=== PATIENT | female | born 1970 | race African-American/Black ===

== ENCOUNTER 2019-12-06 13:02 | Outpatient (CLI) | payer BC, SELFPAY ==
--- NOTE | 2019-12-06 13:07 | ECG_ITS ---
Measurements Intervals [place] Rate: 76 P: 4 ND: 144 QRS: 14 QRSD: 88 T: 13 QT: 364 QTc: 411 Interpretive Statements SINUS RHYTHM NORMAL ECG Electronically Signed On 12-06-2019 13:27:59 CDT by Esteban Bond D.O.
[2019-12-06 13:46] LABS: Basophils Percent Auto 0.6 % (0.2-1.2); Eosinophils Absolute Auto 0.1 K/mm3 (0-0.3); Eosinophils Percent Auto 1.7 % (0-4.4); Hemoglobin 11.5 g/dL (12.0-15.0); Immature Granulocyte Absolute 0.01 K/mm3 (0.00-0.031); Immature Granulocyte Percent A 0.2 % (0-0.5); Lymphocytes Absolute Auto 1.63 K/mm3 (0.9-3.2); Lymphocytes Percent Auto 34.2 % (18.3-44.2); Mean Corpuscular HGB Conc 33.8 g/dl (32-36); Mean Corpuscular Hemoglobin 30.3 pg (26-34); Mean Corpuscular Volume 89.7 fl (80-100); Mean Platelet Volume 10.9 fl (7.4-10.4); Monocytes Absolute Auto 0.4 K/mm3 (0.1-0.6); Monocytes Percent Auto 7.8 % (2.6-8.5); Neutrophils Absolute Auto 2.7 K/mm3 (1.3-6.7); Neutrophils Percent Auto 55.5 % (45.5-73.1); Platelet Count Result 231 k/mm3 (150-375); Red Blood Count 3.79 M/mm3 (4.2-5.4); Red Cell Distribution Width 13.6 % (11.5-14.5); White Blood Count 4.8 K/mm3 (4.5-10.0)
[2019-12-06 13:58] LABS: Anion Gap 11.6 mmol/L (7-16); Blood Urea Nitrogen 11 mg/dL (7-17); Calcium 8.9 mg/dL (8.4-10.2); Carbon Dioxide 26 mmol/L (22-30); Chloride 104 mmol/L (98-107); Estimated Glomerular Filt Rate > 60; Glucose 99 mg/dL (65-105); Potassium 3.6 mmol/L (3.4-5.0); Sodium 138 mmol/L (137-145)
== END 2019-12-06 13:03 | disposition home or self-care (01) ==
PROVIDERS: Anesthesiology; PCP Internal Medicine; Visit Provider Obstetrics & Gynecology
DX: Z01.818 Encounter for other preprocedural examination (principal); I10 Essential (primary) hypertension; R10.2 Pelvic and perineal pain; Z79.899 Other long term (current) drug therapy
CPT/HCPCS: 36415; 80048; 85025; 86850; 86900; 86901; 93005

== ENCOUNTER 2019-12-14 00:53 | Outpatient (CLI) | payer BC, SELFPAY ==
[2019-12-14 18:42] LABS: SARS-CoV-2 RNA PCR Negative
== END 2019-12-14 00:54 | disposition home or self-care (01) ==
LOC: ANHCOVIDDT 00:54
PROVIDERS: PCP Internal Medicine; Visit Provider Obstetrics & Gynecology
DX: Z20.828 Contact with and (suspected) exposure to other viral communicable diseases (principal)
CPT/HCPCS: 87635; C9803; U0003

== ENCOUNTER 2019-12-16 01:20 | Day surgery (SDC) | payer BC, SELFPAY ==
[2019-12-01 13:04] VITALS: BMI 46.6
--- NOTE | 2019-12-14 07:44 | PM.IMHP ---
H&P: HPI History of Present Illness Date/Time: 12/14/19 07:44 Chief complaint: enlarge uterus, fibroids, pelvic pain Narrative: Sanjay Larios is a 49 year old female 3 para 3 who is admitted for robotic total vaginal hysterectomy and bilateral salpingectomies. She has a markedly enlarged uterus that appears to be secondary to uterine fibroids. Ultrasound measured the uterus [id number]. Risks and benefits were reviewed including but not exclusive of , aspiration pneumonia, bleeding, transfusion, perforation injury to bowel, bladder, ureters, or other internal organs with need for open laparotomy. She voiced good understanding. She received the [employer] handout entitled hysterectomy as well as the [facility] [place] handout. She had all questions answered. She asked to proceed Review of Systems Review of Systems: All systems reviewed & are unremarkable except as noted in HPI and below PMFSH Social History Social History Smoking status: Never smoker Spiritual care concerns: No Meds Home Medications and Allergies Home Medications Medication Instructions Recorded Confirmed Type acetaminophen-codeine 1 tablet PO DIRECTED PRN 12/01/19 12/01/19 History allopurinol 100 mg PO DAILY 12/01/19 12/01/19 History aspirin 81 mg PO DAILY 12/01/19 12/01/19 History carvedilol 12.5 mg PO QPM 12/01/19 12/01/19 History carvedilol 25 mg PO DAILY 12/01/19 12/01/19 History ergocalciferol (vitamin D2) 50,000 unit PO Q14D 12/01/19 12/01/19 History pantoprazole 40 mg PO DAILY 12/01/19 12/01/19 History potassium chloride 20 meq PO DAILY 12/01/19 12/01/19 History spironolactone 50 mg PO DAILY 12/01/19 12/01/19 History telmisartan-hydrochlorothiazid 1 tablet PO DAILY 12/01/19 12/01/19 History Allergies Allergy/AdvReac Type Severity Reaction Status Date / Time No Known Allergies Allergy Verified 12/01/19 13:05 Exam Const: General: no acute distress Eyes: General: appearance normal, both eyes and all related structures Neck: Neck: supple and no JVD Thyroid: thyroid normal Resp: Effort & Inspection: normal respiratory effort Auscultation: clear to auscultation bilaterally Cardio: Rate: regular rate Rhythm: regular rhythm GI: Inspection: non-distended GI Palp: Yes Soft to palpation, No Tenderness to palpation present (GI) and No Guarding due to palpation present (GI) Auscultation: normal bowel sounds : General: Yes bladder normal to inspection External Female Exam: normal external appearance Speculum Exam - Vagina: normal appearance of the vagina Speculum Exam - Cervix: normal appearance of the cervix Bimanual exam- vagina & uterus: enlarged Bimanual Exam- Adnexa, other: no masses Skin: General skin exam: no rashes or lesions noted Extrem: General: normal to inspection and no edema Psych: Mental Status: mental status grossly normal Affect: normal affect Assessment and Plan Additional Plan impression: Enlarged uterus and pelvic pain /uterine fibroids Plan: Robotic total vaginal hysterectomy and bilateral salpingectomies
[2019-12-16] VITALS (15 sets, daily range): BP systolic 103–131; BP diastolic 62–86; PULSE 57–101; RESP 12–20; TEMP 36.2–36.9; O2SAT 91–100
--- NOTE | 2019-12-16 06:51 | WPDHPUPDATE1 ---
History and Physical Update Update Date/Time: 12/16/19 06:51 History and Physical has been reviewed, including an updated exam of the patient. There are NO changes in the patient's condition. Risks, benefits, and alternatives have been discussed and questions answered. Patient agrees to proceed with procedure.
[2019-12-16] MEDS: LACTATED RINGERS 1,000 ML 30 ML IV CONT ×2 (10:05→12:57)
--- NOTE | 2019-12-16 10:08 | P.PNAN_ITS ---
Anes - Initial Pre Proc Eval Procedure: Operation Date: 12/16/19 11:30 Proposed Procedures p Robotic Assisted Total Vaginal Hysterectomy, Bilateral Salpingectomy - Abhijeet Cobb MD Date/Time: 12/16/19 10:08 Surgeon: Abhijeet Cobb MD Pre Op Diagnosis: enlarge uterus, fibroids, pelvic pain Patient Data Age: 49 Gender: F Height: 5 ft 6 in Weight: 131.09 kg Allergies Allergy/AdvReac Type Severity Reaction Status Date / Time No Known Allergies Allergy Verified 12/01/19 13:05 Home Medications Medication Instructions Recorded Confirmed Type acetaminophen-codeine 1 tablet PO DIRECTED PRN 12/01/19 12/01/19 History allopurinol 100 mg PO DAILY 12/01/19 12/01/19 History aspirin 81 mg PO DAILY 12/01/19 12/01/19 History carvedilol 12.5 mg PO QPM 12/01/19 12/01/19 History carvedilol 25 mg PO DAILY 12/01/19 12/01/19 History ergocalciferol (vitamin D2) 50,000 unit PO Q14D 12/01/19 12/01/19 History pantoprazole 40 mg PO DAILY 12/01/19 12/01/19 History potassium chloride 20 meq PO DAILY 12/01/19 12/01/19 History spironolactone 50 mg PO DAILY 12/01/19 12/01/19 History telmisartan-hydrochlorothiazid 1 tablet PO DAILY 12/01/19 12/01/19 History hydrocodone-acetaminophen [[place]] 1 tablet PO Q4H PRN #30 tablet 12/16/19 Rx Patient hx anesthesia problems: none Family hx anesthesia problems: none [facility] Past Medical History Medical History GERD (gastroesophageal reflux disease) Hypertension Social History Social History Smoking status: Never smoker Spiritual care concerns: No Anes - Eval Final PreProcedure Day of Procedure 12/16/19 10:08 Patient weight: morbidly obese Heart: regular rate and rhythm Lungs: clear to auscultation Airway: Mallampati scale class II Neurological: alert and oriented Last oral intake: >/= 8 hours ASA classification: III Emergent: no Anesthetic plan: proceed Anesthesia type and monitoring: general ETT and standard monitoring Informed Consent: The patient's anesthetic plan and its attendant risks and benefits were discussed with the patient/family/POA. Questions were solicited and answers provided to the satisfaction of the patient/family/POA.
[2019-12-16] MEDS: KETOROLAC 15 MG/ML VIAL (*BKC) IV PUSH (10:14)
[2019-12-16] MEDS: ACETAMINOPHEN 500 MG TABLET 1000 MG PO (10:14)
[2019-12-16] MEDS: ceFAZolin 3 GM/D5W 100 ML 100 ML IVPB (11:17)
--- NOTE | 2019-12-16 12:34 | P.OP_ITS ---
Procedure Note - Detailed Date of procedure: 12/16/19 Pre-op diagnosis: enlarge uterus, fibroids, pelvic pain Surgeon: Abhijeet Cobb MD Postop diagnosis: Enlarged uterus / fibroids / pelvic pain Procedure: Robotic total vaginal hysterectomy and bilateral salpingectomy Q BL: 50cc Anesthesia: General endotracheal Complications: None Findings: Markedly enlarged uterus. A few adhesions anteriorly from the omentum to the anterior abdominal wall. Normal-appearing ovaries bilaterally. Tubes status post tubal ligation bilaterally Description of procedure: The patient was prepped draped in the normal sterile fashion and placed in dorsal lithotomy position. Under excellent general and endotracheal anesthesia weighted speculum was placed in the posterior fornix of vagina. Anterior lip of the cervix grasped with single-tooth tenaculum and the uterus sounded to 10cm. Serial dilatation with fragmented dilators performed followed passes the 10. SONDRA the 3. And half cold cup. The remainder the instruments were removed. A 16 [place] catheter was placed in the bladder to drain clear urine. Gloves were changed. A supraumbilical incision made in the Veress needle passed in the abdomen. The abdomen was filled with CO2 gas [id number]. The 8mm trocar was advanced in the abdomen. The downside was visualized no injury seen. The patient was placed in Trendelenburg and right and left lateral quadrant incisions made. 8mm trocars were advanced under direct visualization assuring no injury. A right upper quadrant incision made in the 10mm trocar advanced under direct visualization for the assistant teaching professor port. Robot was docked. Attention was turned to the assessment counselor. The left round ligament was grasped, burned cut and a bladder flap was formed by sharply dissecting the bladder caudally away from the cervix and uterus to the opposite round ligament was clamped, burned, cut. Next the left fallopian tube was teased away and sharply dissected away from the ovary in like fashion the right fallopian tube was returned treated in the same fashion. Conserving the left ovary the the left utero-ovarian ligament was clamped, burned, cut. This was brought to the level of previously cut round ligament. Conserving the right ovary the utero-ovarian ligament was clamped, burned, cut and brought to the level of the previously cut round ligament. Next the cardinal and broad ligaments on left were serially skeletonized clamped, burned, cut and brought down the lateral edge of the cervix and uterus until the uterine vessels could be seen on the left. These were large and tortuous and individually clamped,, cut. Next the cardinal and broad ligaments on the right were serially skeletonized. They were clamped, burned, cut. Next the uterine vessels were individually skeletonized on the right clamped, burned, cut. Excellent blanching the uterus was seen. A colpotomy incision was made and the uterus cervix and fallopian tubes were removed through the vagina. Blood loss was estimated at50cc at this point. The vagina was then closed with continuous running 0V lock from lateral edge to lateral edge and back to the midline. Irrigation undertaken until clear and hemostasis was assured. The robot was undocked. Laps were removed and accounted for. The trocars were removed after gas removed from the abdomen and the incisions closed with 4 O Monocryl and glue. The patient was awakened. She went to recovery in satisfactory condition. All sponge, needle, instrument counts were correct. There were no immediate complications noted
[2019-12-16] MEDS: DEXTROSE 5%/LACTATED RINGERS 1,000 ML 125 ML IV CONT ×2 (14:45→20:47)
[2019-12-16] MEDS: MORPHINE SULFATE 4 MG/ML INJ IV PUSH (14:46)
--- NOTE | 2019-12-16 14:57 | PC.NURSE ---
This patient, Sanjay Larios, was admitted to OB 2nd Floor Room 289-00. Patient/family oriented to hospital policies and general routines including ID bracelet, bed and alarms, visiting hours, pain management, procedures, bathroom and other care routines, personal items, smoking policy, room service/diet, and visiting hours. Valuables list has been completed. Information on how to activate the Rapid Response Team has been discussed. Patient/Family are encouraged to report perceived risks to care and to ask questions if they do not understand what they are told or what they should do.
[2019-12-17 00:30] VITALS: BP 100/61; PULSE 96; RESP 18; TEMP 36.8; O2SAT 91; O2SAT 99
[2019-12-17 05:30] VITALS: BP 98/54; PULSE 96; RESP 16; TEMP 36.9; O2SAT 95
[2019-12-17 06:19] LABS: Basophils Percent Auto 0.1 % (0.2-1.2); Hematocrit 31.9 % (37.0-47.0); Hemoglobin 10.7 g/dL (12.0-15.0); Immature Granulocyte Absolute 0.06 K/mm3 (0.00-0.031); Immature Granulocyte Percent A 0.5 % (0-0.5); Lymphocytes Absolute Auto 1.13 K/mm3 (0.9-3.2); Lymphocytes Percent Auto 9.6 % (18.3-44.2); Mean Corpuscular HGB Conc 33.5 g/dl (32-36); Mean Corpuscular Hemoglobin 29.8 pg (26-34); Mean Corpuscular Volume 88.9 fl (80-100); Monocytes Absolute Auto 0.7 K/mm3 (0.1-0.6); Monocytes Percent Auto 6.2 % (2.6-8.5); Neutrophils Absolute Auto 9.8 K/mm3 (1.3-6.7); Neutrophils Percent Auto 83.6 % (45.5-73.1); Platelet Count Result 269 k/mm3 (150-375); Red Blood Count 3.59 M/mm3 (4.2-5.4); White Blood Count 11.8 K/mm3 (4.5-10.0)
[2019-12-17 06:30] VITALS: BP 108/59; PULSE 90; RESP 18; TEMP 36.9
--- NOTE | 2019-12-17 08:01 | PM.DS ---
DS: Admitting Diagnosis Admitting Diagnosis Admitting Diagnosis: enlarge uterus, fibroids, pelvic pain DS: Summary Hospital Course Hospital Course: Sanjay Larios was admitted after robotic assisted total laparoscopic hysterectomy and bilateral salpingectomy for an enlarged uterus. The above procedure was performed with no complications. She is doing well post op. She states her pain is well controlled with PO medications. She reports minimal bleeding. She is ambulating up to the chair. Her canseco catheter was removed. She is tolerating PO without N/V. She reports passing flatus. Status at Discharge Overall status at discharge: patient is progressing back to baseline Time Spent with Patient Time attestation: Total time spent providing and/or coordinating discharge services: Time spent: Less than 30 minutes Exam Const: General: comfortable and no acute distress Limitations: no limitations Resp: Effort & Inspection: normal respiratory effort Auscultation: clear to auscultation bilaterally Cardio: Rate: regular rate Rhythm: regular rhythm GI: Inspection: non-distended GI Palp: Yes Soft to palpation, Yes Tenderness to palpation present (GI) (milder tenderness to deep palpation) and No Guarding due to palpation present (GI) Auscultation: normal bowel sounds Other: incisions C/D/I covered with dermabond Urinary Catheter: Urinary Catheter: urine clear Skin: General skin exam: normal color Extrem: General: normal to inspection Psych: Mental Status: mental status grossly normal Affect: normal affect DS: Data Data Completed and Pending Pending studies at discharge: Pending at discharge 12/16/19 12:10 Surgical [PTH] Routine Labs on day of discharge: Labs from last 24 hours 12/17/19 05:36 WBC 11.8 H RBC 3.59 L Hgb 10.7 L Hct 31.9 L MCV 88.9 MCH 29.8 MCHC 33.5 RDW 13.0 Plt Count 269 MPV 11.0 H Immature Gran % (Auto) 0.5 Neut % (Auto) 83.6 H Lymph % (Auto) 9.6 L [place] % (Auto) 6.2 Eos % (Auto) 0.0 Baso % (Auto) 0.1 L Lymph # (Auto) 1.13 [place] # (Auto) 0.7 H Eos # (Auto) 0.0 Baso # (Auto) 0.0 Abs Immat Gran (auto) 0.06 H Absolute Neuts (auto) 9.8 H Absolute Nucleated RBC 0.0 Nucleated RBC % 0.0 Discharge Plan Discharge Patient Disposition: Home, Self-Care Patient Instructions: Laparoscopic Hysterectomy (DC) Stand Alone Forms: General Discharge Instructions Follow-up/Referrals: Abhijeet Cobb MD [Physician] - Discharge Medications: New hydrocodone-acetaminophen [[place]] 5-325 mg tablet 1 tablet PO Q4H PRN (Reason: pain) Qty: 30 RF: 0 No Action carvedilol 12.5 mg tablet 25 mg PO DAILY RF: 0 carvedilol 12.5 mg tablet 12.5 mg PO QPM RF: 0 allopurinol 100 mg tablet 100 mg PO DAILY RF: 0 aspirin 81 mg Tablet,Delayed Release (Dr/Ec) 81 mg PO DAILY RF: 0 potassium chloride 20 mEq tablet,ER particles/crystals 20 meq PO DAILY RF: 0 pantoprazole 40 mg tablet,delayed release (DR/EC) 40 mg PO DAILY RF: 0 ergocalciferol (vitamin D2) 1,250 mcg (50,000 unit) capsule 50,000 unit PO Q14D RF: 0 spironolactone 50 mg tablet 50 mg PO DAILY RF: 0 telmisartan-hydrochlorothiazid 80-25 mg Tablet 1 tablet PO DAILY RF: 0 acetaminophen-codeine 300-30 mg tablet 1 tablet PO DIRECTED PRN (Reason: Pain) RF: 0 Primary Care Provider: Brandy,Wilder Nava Attending physician on admission: Abhijeet Cobb
--- NOTE | 2019-12-17 08:31 | WPDANESPN ---
Anes - Prog Note Post-Op Date/Time: 12/17/19 08:31 Cardiovascular status: normal Respiratory status: normal Airway patency: baseline Mental status: baseline Post-Op hydration status: normal Vital Signs: Last Vital Signs Temp 36.9 C 12/17/19 06:30 Pulse 90 12/17/19 06:30 Resp 18 12/17/19 06:30 BP 108/59 L 12/17/19 06:30 Pulse Ox 95 12/17/19 05:30 I/O: Intake & Output 12/16/19 12/17/19 12/17/19 23:59 07:59 15:59 Intake Total 1490 625 Output Total 650 250 Balance 840 375 Laboratory Tests 12/17/19 05:36 12/17/19 05:36 WBC 11.8 H RBC 3.59 L Hgb 10.7 L Hct 31.9 L MCV 88.9 MCH 29.8 MCHC 33.5 RDW 13.0 Plt Count 269 MPV 11.0 H Immature Gran % (Auto) 0.5 Neut % (Auto) 83.6 H Lymph % (Auto) 9.6 L [place] % (Auto) 6.2 Eos % (Auto) 0.0 Baso % (Auto) 0.1 L Lymph # (Auto) 1.13 [place] # (Auto) 0.7 H Eos # (Auto) 0.0 Baso # (Auto) 0.0 Abs Immat Gran (auto) 0.06 H Absolute Neuts (auto) 9.8 H Absolute Nucleated RBC 0.0 Nucleated RBC % 0.0 Post-procedural complaints: none Patient Feedback: Patient satisfied with anesthetic care.
[2019-12-17] MEDS: DOCUSATE SODIUM 100 MG CAPSULE PO (10:45)
[2019-12-17] MEDS: IBUPROFEN 600 MG TABLET PO (10:45)
[2019-12-17] MEDS: ENOXAPARIN 40 MG/0.4 ML SYRINGE SUB-Q (10:46)
== END 2019-12-17 15:17 | disposition home or self-care (01) ==
LOC: ANHSURGERY 09:30 → ANHOB2 14:16
PROVIDERS: PCP Internal Medicine; Visit Provider Obstetrics & Gynecology
PROC: (CPT 58552; principal; 2019-12-16 11:30)
DX: D25.1 Intramural leiomyoma of uterus (principal); D25.0 Submucous leiomyoma of uterus; D25.2 Subserosal leiomyoma of uterus; N88.8 Other specified noninflammatory disorders of cervix uteri; N85.8 Other specified noninflammatory disorders of uterus; N80.0 Endometriosis of uterus; N80.2 Endometriosis of fallopian tube; K66.0 Peritoneal adhesions (postprocedural) (postinfection); I10 Essential (primary) hypertension; K21.9 Gastro-esophageal reflux disease without esophagitis; E66.01 Morbid (severe) obesity due to excess calories; Z68.42 Body mass index [BMI] 45.0-49.9, adult; Z79.82 Long term (current) use of aspirin; Z79.899 Other long term (current) drug therapy
CPT/HCPCS: 58552; S2900; 36415; 85025; 88307; 99199; A9270; J0330; J0690; J1100; J1650; J1885; J2250; J2270; J2405; J2704; J2710; J3010; J7030; J7120; J7121

== ENCOUNTER 2022-10-20 17:34 | Emergency (ER) | payer OTHER, SELFPAY ==
--- NOTE | ~2022-10-20 | US_ITS ---
EXAMINATION: US venous doppler [facility] DATE: 10/20/2022 18:59 INDICATION: pain in thigh and knee . TECHNIQUE: Grayscale images without and with compression and Doppler images of the left lower extremi ty veins were obtained. COMPARISON: None FINDINGS: The left common femoral vein, profunda (deep) femoral vein, femoral vein, popliteal vein, peroneal v ein, posterior tibial veins, gastrocnemius vein, and greater saphenous vein are patent. Moderate-size d Garcia's cyst. IMPRESSION: 1. Patent left lower extremity veins. No evidence of deep venous thrombosis. Reviewed, dictated and finalized at location K.
--- NOTE | ~2022-10-20 | XR_ITS ---
EXAM: XR lumbar spine min 4V DATE: 10/20/2022 20:01 HISTORY: L midline lumbar pain, SI tenderness . COMPARISON: None available. FINDINGS: Cholecystectomy clips. 5 nonrib-bearing lumbar-type vertebral bodies. Partial sacralizatio n of L5 on the right with pseudoarthrosis. Pedicles intact. No pars defect. Multilevel disc space godwin rowing and marginal osteophytosis, severe at L4-5 and L5-S1. 2 mm retrolisthesis at L2-3. 4 mm retrol isthesis at L3-4. Moderate multilevel facet arthropathy. No fracture or dislocation. IMPRESSION: No acute fracture or traumatic malalignment detected in the lumbar spine. Reviewed, dictated and finalized at location K.
[2022-10-20 17:36] VITALS: BP 129/84; PULSE 89; RESP 16; TEMP 36.5; O2SAT 99
--- NOTE | 2022-10-20 19:08 | PC.NURSE ---
Patient report given to SUKH Pa. All questions answered and care of patient transferred.
--- NOTE | 2022-10-20 19:20 | PC.NURSE ---
This RN took over care of pt.
[2022-10-20] MEDS: ACETAMINOPHEN 500 MG TABLET 1000 MG PO (20:14)
[2022-10-20] MEDS: CYCLOBENZAPRINE HCL 5 MG TABLET PO (20:15)
[2022-10-20] MEDS: KETOROLAC (*BKC) 60 MG/2 ML VIAL IM (20:16)
--- NOTE | 2022-10-20 20:41 | ED.GENADULT ---
HPI - General Adult General Chief complaint: Extremity Injury, Lower Stated complaint: left leg pain Time Seen by Provider: 10/20/22 18:21 Source: patient Mode of arrival: ambulatory Limitations: no limitations History of Present Illness HPI narrative: Patient is a 52-year-old female who presents the ED with report of left leg pain. Patient reports the pain began overnight and woke her up from her sleep. Pain begins in her left lateral hip and goes down to her posterior knee. She does report having some left lower back pain as well. Pain worse with any type of movement. Patient has never had pain like this before. She denies any injury or fall. Denies any heavy lifting. Denies any numbness or tingling. Denies incontinence, saddle anesthesia, weakness. Denies lower leg pain or swelling. She has not tried anything for the pain. Related Data Home Medications Medication Instructions Recorded Confirmed acetaminophen 300 mg-codeine 30 mg 1 tablet PO DIRECTED PRN Pain 12/01/19 12/16/19 tablet allopurinol 100 mg tablet 100 mg PO DAILY 12/01/19 12/16/19 aspirin 81 mg tablet,delayed 81 mg PO DAILY 12/01/19 12/16/19 release carvedilol 12.5 mg tablet 12.5 mg PO QPM 12/01/19 12/16/19 carvedilol 12.5 mg tablet 25 mg PO DAILY 12/01/19 12/16/19 ergocalciferol (vitamin D2) 1,250 50,000 unit PO Q14D 12/01/19 12/16/19 mcg (50,000 unit) capsule pantoprazole 40 mg tablet,delayed 40 mg PO DAILY 12/01/19 12/16/19 release potassium chloride 20 mEq 20 meq PO DAILY 12/01/19 12/16/19 tablet,extended release(part/cryst) spironolactone 50 mg tablet 50 mg PO DAILY 12/01/19 12/16/19 telmisartan 80 1 tablet PO DAILY 12/01/19 12/16/19 mg-hydrochlorothiazide 25 mg tablet Allergies Allergy/AdvReac Type Severity Reaction Status Date / Time iodine Allergy Dizziness Verified 10/20/22 17:50 Review of Systems Review of Systems: CONSTITUTIONAL: Denies fever, chills, or sweats. CARDIOVASCULAR: Denies chest pain. RESPIRATORY: Denies dyspnea. MUSCULOSKELETAL: See HPI. NEUROLOGIC: Denies tingling, numbness, or weakness. All systems reviewed & are unremarkable except as noted in HPI and below PMFSH Past Medical History Medical History (Updated 10/20/22 @ 20:46 by Elyssa Hall PA-C) GERD (gastroesophageal reflux disease) Hypertension Social History Social History Smoking status: Never smoker Spiritual care concerns: No Exam Narrative: GENERAL: Well appearing, morbidly obese with BMI 51.6, non-toxic, in no acute distress. HEAD: Normocephalic, atraumatic. NECK: Supple. No adenopathy, no masses. RESPIRATORY: Airway patent, respirations nonlabored. Clear to auscultation bilaterally, no rales, rhonchi, wheezing. CARDIOVASCULAR: Regular rate and rhythm without murmurs, rubs, or gallops. Pedal pulses 2+ and equal bilaterally. MUSCULOSKELETAL: Moves all extremities. Strength/ROM intact without gross deformities. Positive straight leg raise on left. Mild tenderness to palpation throughout left upper lateral and posterior thigh. Mild tenderness throughout left-sided lumbar paraspinal musculature and over left SI region, reproducing. No significant midline spinal tenderness. No palpable deformities or bony step-offs. Sensation intact. SKIN: Warm, dry, normal color. No rashes. NEURO: A&O X3. Speech clear. Cranial nerves II-XII grossly intact. No ataxic movements. PSYCHIATRIC: Appropriate mood and affect. Normal interaction. Course Vital Signs Vital signs: Vital Signs Temperature 97.7 F 10/20/22 17:36 Pulse Rate 89 10/20/22 17:36 Respiratory Rate 16 10/20/22 17:36 Blood Pressure 129/84 10/20/22 17:36 Pulse Oximetry 99 10/20/22 17:36 Temperature 97.7 F 10/20/22 17:36 Pulse Rate 89 10/20/22 17:36 Respiratory Rate 16 10/20/22 17:36 Blood Pressure 129/84 10/20/22 17:36 Pulse Oximetry 99 10/20/22 17:36 Med
== END 2022-10-20 21:58 | disposition home or self-care (01) ==
PROVIDERS: Emergency Provider Physician Assistant; PCP Internal Medicine
DX: M54.16 Radiculopathy, lumbar region (principal); I10 Essential (primary) hypertension; K21.9 Gastro-esophageal reflux disease without esophagitis; Z79.82 Long term (current) use of aspirin
CPT/HCPCS: 72110; 93971; 96372; 99284; A9270; J1885